=== PATIENT | male | born 1955 | race African-American/Black ===

== ENCOUNTER 2019-08-12 13:42 | Observation (INO) ==
[2019-08-12] MEDS ORDERED: NITROGLYCERIN 2% OINT 1 INCH/GM PACK TOP STA (13:49)
[2019-08-12] MEDS ORDERED: ASPIRIN 325 MG TABLET PO STA (13:49)
[2019-08-12] MEDS ORDERED: ENOXAPARIN 30 MG/0.3 ML SYRINGE SUBCUT STA (14:17)
[2019-08-12 14:39] LABS: Basophils % 0.5 % (0.0-0.8); Eosinophils # 0.1 10*3/uL (0.0-0.87); Eosinophils % 2.1 % (0.00-10.9); Hematocrit 38.1 VOL% (42.0-52.0); Hemoglobin 13.3 GM/DL (14.0-18.0); Immature Granulocytes % 0.7 %; Immature Granulocytes Absolute 0.04 #; Lymphocytes # 1.4 10*3/uL (1.4-4.0); Lymphocytes % 23.9 % (21.2-54.2); Mean Corpuscular HGB Conc 34.9 GM/DL (32-36); Mean Corpuscular Volume 86.8 FL (87-102); Mean Platelet Volume 11.9 FL (9.6-12.0); Monocytes % 11.7 % (1.7-12.7); Neutrophils % 61.1 % (38.7-73.9); Platelet Count 202 T/CUMM (130-400); Red Blood Count 4.39 MC/CUMM (3.8-5.5); Red Cell Distribution Width 12.5 % (9.3-17.3); White Blood Count 5.7 T/CUMM (4-12)
[2019-08-12 14:47] LABS: INR 0.9; PT Patient Result 10.3 SECS (9.6-12.2); Partial Thromboplastin Time 25.9 SECS (20.8-36.0)
[2019-08-12] MEDS ORDERED: ENOXAPARIN 100 MG/ML SYRINGE SUBCUT ONE (14:54)
[2019-08-12 14:57] LABS: Albumin 3.5 G/DL (3.4-5.0); Osmolality,Calculated 288.3 MOS/KG (273-304); Total Protein 7.2 G/DL (6.4-8.3)
[2019-08-12] MEDS ORDERED: POTASSIUM CHLORIDE 20 MEQ TABLET PO STA (15:06)
[2019-08-12] MEDS ORDERED: ONDANSETRON 4 MG/2 ML VIAL IV PRN (15:09)
[2019-08-12] MEDS ORDERED: PROMETHAZINE 25 MG/1 ML VIAL IM PRN (15:09)
[2019-08-12] MEDS ORDERED: hydrALAZINE 20 MG/1 ML VIAL IV PRN (15:19)
[2019-08-12] MEDS ORDERED: DEXTROSE 50% 25 GM/50 ML VIAL IV PRN (15:26)
[2019-08-12] MEDS ORDERED: GLUCAGON 1 MG VIAL IM PRN (15:26)
[2019-08-12] MEDS ORDERED: SODIUM CHLORIDE 0.9% 1,000 ML IV SCH (15:30)
[2019-08-12] MEDS ORDERED: ENOXAPARIN 120 MG/0.8 ML SYRINGE SUBCUT SCH (15:30)
[2019-08-12] MEDS ORDERED: hydroCHLOROthiazide 25 MG TABLET PO STA (15:35)
[2019-08-12] MEDS ORDERED: amLODIPine 5 MG TABLET PO STA (15:35)
[2019-08-12] MEDS ORDERED: traMADol 50 MG TABLET PO PRN (16:00)
[2019-08-12] MEDS ORDERED: ISOSORBIDE MONONITRATE 30 MG TABLET PO SCH ×2 (17:00)
[2019-08-12] MEDS ORDERED: amLODIPine 5 MG TABLET PO SCH (17:00)
[2019-08-12] MEDS: INSULIN REGULAR 100 UNIT/ML SUBCUT SCH ×2 (18:43→22:17)
[2019-08-12] MEDS: ACETAMINOPHEN 325 MG TABLET PO PRN (20:15)
[2019-08-12] MEDS: OLMESARTAN 20 MG TABLET PO SCH (20:15)
[2019-08-12] MEDS: ISOSORBIDE MONONITRATE 30 MG TABLET PO SCH (20:16)
[2019-08-12] MEDS: SPIRONOLACTONE 25 MG TABLET PO SCH (20:16)
[2019-08-12] MEDS: METOPROLOL TARTRATE 100 MG TABLET PO SCH (22:11)
[2019-08-12] MEDS: PANTOPRAZOLE 40 MG TABLET PO SCH (22:11)
[2019-08-13] MEDS: ACETAMINOPHEN 325 MG TABLET PO PRN (00:38)
[2019-08-13] MEDS ORDERED: hydrALAZINE 20 MG/1 ML VIAL IV ONE (04:58)
[2019-08-13 05:39] LABS: Calcium 9.2 MG/DL (8.5-10.1); Osmolality,Calculated 285.3 MOS/KG (273-304); Risk Ratio 4.61
[2019-08-13] MEDS ORDERED: POTASSIUM CHLORIDE 20 MEQ TABLET PO ONE (07:22)
[2019-08-13] MEDS: INSULIN REGULAR 100 UNIT/ML SUBCUT SCH ×2 (07:38→12:14)
[2019-08-13] MEDS: IRON (CARBONYL)/VIT C/B12/FA TABLET PO SCH ×2 (07:57→08:11)
[2019-08-13] MEDS: sitaGLIPtin 100 MG TABLET PO SCH ×2 (07:57→08:11)
[2019-08-13] MEDS: METOPROLOL TARTRATE 100 MG TABLET PO SCH ×2 (07:58→08:11)
[2019-08-13] MEDS: amLODIPine 10 MG TABLET PO SCH ×2 (07:58→08:11)
[2019-08-13] MEDS: OLMESARTAN 20 MG TABLET PO SCH ×2 (07:58→08:11)
[2019-08-13] MEDS: PANTOPRAZOLE 40 MG TABLET PO SCH ×2 (07:58→08:12)
[2019-08-13] MEDS: SPIRONOLACTONE 25 MG TABLET PO SCH ×2 (07:58→08:11)
[2019-08-13] MEDS: ISOSORBIDE MONONITRATE 30 MG TABLET PO SCH (08:01)
[2019-08-13] MEDS ORDERED: ACETAMINOPHEN 500 MG TABLET PO ONE (08:02)
[2019-08-13] MEDS: hydrALAZINE 25 MG TABLET PO SCH ×2 (08:13→11:01)
[2019-08-13] MEDS ORDERED: hydroCHLOROthiazide 25 MG TABLET PO SCH (09:00)
[2019-08-13 11:47] VITALS: BP 170/85
== END 2019-08-13 14:40 | disposition home or self-care (01) ==
LOC: N.ED 13:42 → N.EDINP 13:42 → N.2W 17:26
PROVIDERS: ADMIT Internal Medicine; ATTEND Internal Medicine

== ENCOUNTER 2022-09-04 13:50 | Inpatient (IN) ==
[2022-09-04] MEDS ORDERED: cloNIDine 0.1 MG TABLET PO STA (15:10)
[2022-09-04] MEDS ORDERED: KETOROLAC 30 MG/1 ML VIAL IM STA (16:00)
[2022-09-04] MEDS ORDERED: hydrALAZINE 25 MG TABLET ONE (17:21)
[2022-09-04 17:48] LABS: Mucus,Urine Occasional /LPF (Occasional); RBC,Urine 2 /HPF (0-4); Squamous Epithelial Cell,Urine Occasional /HPF (0-10)
[2022-09-04 17:52] LABS: Bilirubin,Urine Negative (Negative); Blood, Urine Negative (Negative); Glucose,Urine (UA) Negative (Negative); Ketones,Urine Negative (Negative); Nitrite,Urine Negative (Negative); Protein,Urine 100 mg/dL (Negative); Urine Appearance Clear (Clear); Urine Color Yellow (Yellow)
[2022-09-04] MEDS ORDERED: hydrALAZINE 20 MG/1 ML VIAL IV STA (18:46)
[2022-09-04 19:25] LABS: Basophils % 0.5 % (0.0-0.8); Eosinophils # 0.1 10*3/uL (0.0-0.87); Eosinophils % 1.4 % (0.00-10.9); Hematocrit 32.4 VOL% (42.0-52.0); Hemoglobin 10.5 GM/DL (14.0-18.0); Immature Granulocytes % 0.4 %; Immature Granulocytes Absolute 0.02 #; Lymphocytes # 1.3 10*3/uL (1.4-4.0); Lymphocytes % 23.3 % (21.2-54.2); Mean Corpuscular HGB Conc 32.4 GM/DL (32-36); Mean Corpuscular Volume 88.8 FL (87-102); Mean Platelet Volume 10.4 FL (9.6-12.0); Monocytes # 0.7 10*3/uL (0.11-0.8); Monocytes % 12.2 % (1.7-12.7); Neutrophils % 62.2 % (38.7-73.9); Platelet Count 220 T/CUMM (130-400); Red Blood Count 3.65 MC/CUMM (3.8-5.5); Red Cell Distribution Width 16.3 % (9.3-17.3); White Blood Count 5.6 T/CUMM (4-12)
[2022-09-04 19:40] LABS: Barbiturates Screen,Urine Negative (Negative); Benzodiazepines Screen,Urine Negative (Negative); Cannabinoid Screen,Urine Negative (Negative); Opiate Screen,Urine Negative (Negative); Phencyclidine Screen,Urine Negative (Negative)
[2022-09-04 19:45] LABS: Albumin 3.9 G/DL (3.4-5.0); Bilirubin,Total 0.4 MG/DL (0.20-1.00); Calcium 9.4 MG/DL (8.5-10.1); Osmolality,Calculated 286.1 MOS/KG (273-304); Potassium 3.7 MMOL/L (3.5-5.1); Total Protein 7.2 G/DL (6.4-8.2)
[2022-09-04] MEDS ORDERED: LABETALOL 20 MG/4 ML SYRINGE IV STA (19:54)
[2022-09-04] MEDS ORDERED: ONDANSETRON 4 MG/2 ML VIAL IV PRN (21:31)
[2022-09-04] MEDS ORDERED: GLUCAGON 1 MG VIAL IM PRN (21:31)
[2022-09-04] MEDS ORDERED: ZALEPLON 5 MG CAPSULE PO PRN (21:31)
[2022-09-04] MEDS ORDERED: diphenhydrAMINE CAP 25 MG CAPSULE PO PRN (21:31)
[2022-09-04] MEDS ORDERED: NICOTINE 21 MG/24 HR PATCH TRANSDERM PRN (21:31)
[2022-09-04] MEDS ORDERED: guaiFENesin/DM ER 600-30 MG TABLET PO PRN (21:31)
[2022-09-04] MEDS ORDERED: niCARdipine INJ 25 MG in SODIUM CHLORIDE 0.9% 240 ML IV PRN (21:33)
[2022-09-04] MEDS ORDERED: niCARdipine 25 MG/10 ML VIAL IV ONE (21:53)
[2022-09-04] MEDS ORDERED: DEXTROSE 10% 250 ML BAG IV PRN (21:55)
[2022-09-05] MEDS ORDERED: METOPROLOL TARTRATE 50 MG TABLET PO STA (01:01)
[2022-09-05] MEDS ORDERED: SPIRONOLACTONE 25 MG TABLET PO ONE (01:30)
[2022-09-05] MEDS: MORPHINE 2 MG/1 ML SYRINGE IV PRN ×2 (01:37→15:05)
[2022-09-05] MEDS: hydrALAZINE 20 MG/1 ML VIAL IV PRN ×2 (02:07→12:24)
[2022-09-05] MEDS ORDERED: niCARdipine 25 MG/10 ML VIAL IV ONE (02:34)
[2022-09-05 04:39] LABS: Basophils % 0.4 % (0.0-0.8); Eosinophils # 0.1 10*3/uL (0.0-0.87); Eosinophils % 1.3 % (0.00-10.9); Hemoglobin 12.2 GM/DL (14.0-18.0); Immature Granulocytes % 0.3 %; Immature Granulocytes Absolute 0.02 #; Lymphocytes # 1.7 10*3/uL (1.4-4.0); Lymphocytes % 24.2 % (21.2-54.2); Mean Corpuscular HGB Conc 32.1 GM/DL (32-36); Mean Corpuscular Volume 87.8 FL (87-102); Mean Platelet Volume 10.9 FL (9.6-12.0); Monocytes # 0.7 10*3/uL (0.11-0.8); Monocytes % 10.6 % (1.7-12.7); Neutrophils % 63.2 % (38.7-73.9); Platelet Count 251 T/CUMM (130-400); Red Blood Count 4.33 MC/CUMM (3.8-5.5); Red Cell Distribution Width 16.4 % (9.3-17.3); White Blood Count 6.8 T/CUMM (4-12)
[2022-09-05 05:00] LABS: Osmolality,Calculated 284.3 MOS/KG (273-304); Potassium 3.1 MMOL/L (3.5-5.1)
[2022-09-05] MEDS: INSULIN LISPRO 100 UNIT/ML SUBCUT SCH ×4 (08:13→21:12)
[2022-09-05] MEDS: ASPIRIN EC 81 MG TABLET PO SCH (08:59)
[2022-09-05] MEDS: hydroCHLOROthiazide 25 MG TABLET PO SCH (08:59)
[2022-09-05] MEDS: SPIRONOLACTONE 25 MG TABLET PO SCH (08:59)
[2022-09-05] MEDS: OLMESARTAN 20 MG TABLET PO SCH (08:59)
[2022-09-05] MEDS ORDERED: METOPROLOL TARTRATE 100 MG TABLET PO SCH (09:00)
[2022-09-05] MEDS ORDERED: SPIRONOLACTONE 25 MG TABLET PO SCH ×2 (09:00)
[2022-09-05] MEDS: METOPROLOL TARTRATE 100 MG TABLET PO SCH ×2 (09:00→20:29)
[2022-09-05] MEDS: PANTOPRAZOLE 40 MG TABLET PO SCH (09:00)
[2022-09-05] MEDS ORDERED: ASPIRIN EC 81 MG TABLET PO SCH (09:00)
[2022-09-05] MEDS ORDERED: POTASSIUM CHLORIDE 20 MEQ TABLET PO ONE (11:04)
[2022-09-05] MEDS: ISOSORBIDE MONONITRATE 30 MG TABLET PO SCH (12:24)
[2022-09-05 13:16] LABS: % Iron Saturation 8.9 % (18-50)
[2022-09-05] MEDS ORDERED: amLODIPine 5 MG TABLET PO SCH (14:30)
[2022-09-05] MEDS: ACETAMINOPHEN 325 MG TABLET PO PRN ×2 (15:04→20:31)
[2022-09-05] MEDS: POTASSIUM CHLORIDE 20 MEQ TABLET PO PRN ×2 (15:04→18:13)
[2022-09-05] MEDS ORDERED: ROSUVASTATIN 20 MG TABLET PO SCH (21:00)
[2022-09-06] MEDS: hydrALAZINE 20 MG/1 ML VIAL IV PRN (00:04)
[2022-09-06 05:48] LABS: Basophils % 0.5 % (0.0-0.8); Eosinophils # 0.1 10*3/uL (0.0-0.87); Eosinophils % 1.5 % (0.00-10.9); Hematocrit 36.6 VOL% (42.0-52.0); Hemoglobin 11.8 GM/DL (14.0-18.0); Immature Granulocytes % 0.2 %; Immature Granulocytes Absolute 0.01 #; Lymphocytes # 1.2 10*3/uL (1.4-4.0); Lymphocytes % 19.3 % (21.2-54.2); Mean Corpuscular HGB Conc 32.2 GM/DL (32-36); Mean Corpuscular Volume 87.6 FL (87-102); Mean Platelet Volume 10.9 FL (9.6-12.0); Monocytes # 0.8 10*3/uL (0.11-0.8); Monocytes % 13.3 % (1.7-12.7); Neutrophils % 65.2 % (38.7-73.9); Platelet Count 254 T/CUMM (130-400); Red Blood Count 4.18 MC/CUMM (3.8-5.5); Red Cell Distribution Width 16.5 % (9.3-17.3); White Blood Count 6.2 T/CUMM (4-12)
[2022-09-06 06:05] LABS: Osmolality,Calculated 284.4 MOS/KG (273-304); Potassium 3.5 MMOL/L (3.5-5.1)
[2022-09-06] MEDS ORDERED: amLODIPine 10 MG TABLET PO SCH (09:00)
[2022-09-06] MEDS ORDERED: FERROUS SULFATE 325 MG TABLET PO SCH (09:00)
[2022-09-06] MEDS: INSULIN LISPRO 100 UNIT/ML SUBCUT SCH ×2 (09:13→15:07)
[2022-09-06] MEDS: hydroCHLOROthiazide 25 MG TABLET PO SCH (09:15)
[2022-09-06] MEDS: POTASSIUM CHLORIDE 20 MEQ TABLET PO PRN (09:15)
[2022-09-06] MEDS: SPIRONOLACTONE 25 MG TABLET PO SCH (09:15)
[2022-09-06] MEDS: ISOSORBIDE MONONITRATE 30 MG TABLET PO SCH (09:15)
[2022-09-06] MEDS: ASPIRIN EC 81 MG TABLET PO SCH (09:15)
[2022-09-06] MEDS: METOPROLOL TARTRATE 100 MG TABLET PO SCH (09:15)
[2022-09-06] MEDS: PANTOPRAZOLE 40 MG TABLET PO SCH (09:15)
[2022-09-06] MEDS: OLMESARTAN 20 MG TABLET PO SCH (09:16)
[2022-09-06 12:33] VITALS: BP 150/82
== END 2022-09-06 16:40 | disposition home or self-care (01) | DRG 305 ==
LOC: N.EDINP 13:50 → N.ED 13:50 → SUATTDRO 21:31 → N.TELES 09-05 09:21
PROVIDERS: ADMIT Internal Medicine; ATTEND Emergency Medicine